=== PATIENT | female | born 1945 | race Caucasian/White ===

== ENCOUNTER 2017-04-12 00:57 | Inpatient (IN) ==
[2017-04-12] MEDS ORDERED: NITROGLYCERIN 2% OINT 1 INCH/GM PACK TOP STA (01:27)
[2017-04-12] MEDS ORDERED: ENOXAPARIN 100 MG/ML SYRINGE SUBCUT STA (01:27)
[2017-04-12] MEDS ORDERED: ALUM/MAG/SIMETH/LIDO VISC 1:1 30 ML BOTTLE PO STA (01:27)
[2017-04-12] MEDS ORDERED: ONDANSETRON 4 MG/2 ML VIAL IV STA (01:27)
[2017-04-12] MEDS ORDERED: ASPIRIN 325 MG TABLET PO STA (01:27)
[2017-04-12] MEDS ORDERED: MORPHINE 2 MG/1 ML SYRINGE IV STA (01:27)
[2017-04-12] MEDS ORDERED: ONDANSETRON 4 MG/2 ML VIAL ONE (01:51)
[2017-04-12] MEDS ORDERED: MORPHINE 2 MG/1 ML SYRINGE ONE (01:51)
[2017-04-12] MEDS ORDERED: ALUM/MAG/SIMETH/LIDO VISC 1:1 30 ML BOTTLE PO ONE (01:51)
[2017-04-12] MEDS ORDERED: NITROGLYCERIN 2% OINT 1 INCH/GM PACK TOP ONE ×2 (01:51→07:48)
[2017-04-12] MEDS ORDERED: ENOXAPARIN 80 MG/0.8 ML SYRINGE SUBCUT ONE (01:51)
--- NOTE | 2017-04-12 01:51 | Emergency Department Note ---
ITang Emily, am scribing for, and in the presence of, Tonny Higuera MD 01: 49. Kalen Luna Charles R, MD, personally performed the services described in this documentation, ascribed by Nancie Beckwith in my presence, and it is both accurate and complete . 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 pt has hx stents x 2, dm, htn. 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 Pt notes pain in now radiated to her upper left side of back, and feels similar to heart attack in past. Pt reports having stents placed in which last one was in [address] Worrell. Pt denies nausea, SOB, arm or neck pain. She was seen earlier today for cough and congestion with Cally Ricardo, nurse practitioner, and given two steroid/abx shot in buttocks. Pt notes getting weaker with exertion but denies MALLOY. PMHx of NIDDM, HTN. Onset (ago): hour(s) Consistency: constant Severity: moderate Severity scale (1-10): 7 Quality: aching Date of Last Menstrual Period: hysterectomy Allergies/Adverse Reactions: Allergies Allergy/AdvReac Type Severity Reaction Status Date / Time levofloxacin [From Levaquin] Allergy Unknown Verified 02/09/17 17:13 methylprednisolone Allergy Unknown Verified 02/09/17 17:14 [From Depo-Medrol] Penicillins Allergy Unknown Verified 02/09/17 17:13 Review of System - Review of System 12 point system: reviewed and no additional remarkable complaints except as stated - Review of System Constitutional: Absent: chills, diaphoresis, fever Respiratory: Absent: respiratory distress Cardiovascular: Present: chest pain (radiating to upper left back). Absent: dyspnea on exertion, edema, syncope Gastrointestinal: Absent: abdominal pain, nausea, vomiting Musculoskeletal: Present: upper back pain (left side). Absent: arm pain, neck pain Skin: Absent: rash Neurological: Absent: headache, confusion Medical,Surgical,& Family Hx - Medical History Cardio: History of: Hypertension, [place] (stents x 2) Endocrine: History of: Diabetes Mellitus (NIDDM) - Social History Smoking Status: Never smoker Frequency of Alcohol Use: None Type of Drug Use: None Marital Status: Lives With:: Spouse Functional capacity: independent ambulation Exam Vital Signs: Vital Signs Temperature 96.9 F L 04/12/17 00:57 Pulse Rate 105 H 04/12/17 00:57 Respiratory Rate 25 H 04/12/17 00:57 Blood Pressure 149/73 04/12/17 00:57 O2 Sat by Pulse Oximetry 98 04/12/17 00:57 - General General appearance: alert, in no apparent distress - Head Head exam: Present: atraumatic, normocephalic - Eye Eye exam: Present: PERRL, EOMI - ENT ENT exam: Present: mucous membranes moist. Absent: mucous membranes dry - Neck Neck exam: Present: full ROM - Chest Chest inspection: Present: symmetric chest wall rise, tenderness (left sided chest pain at mid sternum) - Respiratory Respiratory exam: Present: normal lung sounds bilaterally. Absent: respiratory distress - Cardiovascular Cardiovascular exam: Present: regular rate, normal rhythm, normal heart sounds - Extremities Exam Extremities exam: Present: full ROM. Absent: tenderness, pedal edema - Back Exam Back exam: Present: full ROM, tenderness (reproducible, left sided upper back tenderness) - Neurological Exam Neurological exam: Present: alert, oriented X3, CN II-XII intact. Absent: motor sensory deficit - Psychiatric Psychiatric exam: Present: normal affect, normal mood - Skin Skin exam: Present: warm, dry Course - Reevaluation(s) Reevaluation #1: Patient's chest pain is better still has pain though. Looking at EKG #1 done on arrival she has subtle changes some ST elevation less than 1 mm. EKG #2 there is only one lead that has very slight elevation in lead III. After talking to Dr. 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 Patient does have a borderline elevated troponin 0.221. My opinion patient is may be having acute coronary event that most likely result in a catheterization in the morning patient be placed in the CCU Time: 02:37 - Consultations Consultation #1: Dr. Gooden will admit patient. Time: 02:36 Results - Labs CBC & BMP: 04/12/17 01:10 04/12/17 01:10 Lab Results: I have reviewed the patients labs Labs: Laboratory Tests 04/12/17 04/12/17 04/12/17 01:10 01:10 01:10 WBC 6.8 RBC 4.05 Hgb 10.6 L Hct 32.5 L MCV 80.2 L MCH 26 L Plt Count 258 Neut % (Auto) 78.2 H Lymph % (Auto) 13.9 L Lymph # (Auto) 0.9 L Sodium 137 Potassium 4.3 Chloride 104 Carbon Dioxide 25 BUN 26 H Creatinine 1.90 H Glucose 278 H Magnesium 1.4 L AST 24 ALT 34 Troponin I 0.221 H Albumin/Globulin Ratio 1.0 L Lipase 155.0 Critical Care Time Critical Care Time: Yes Total Critical Care Time: 60 Disposition Clinical Impression: Chest pain, Unstable angina pectoris Case discussed with: patient, patient's family Disposition: Still a Patient Condition: Guarded Time of Disposition: 02:38
[2017-04-12 02:00] LABS: Basophils % 0.3 % (0.0-0.8); Hematocrit 32.5 VOL% (35.7-47.0); Hemoglobin 10.6 GM/DL (12.0-16.0); Immature Granulocytes % 1.2 %; Immature Granulocytes Absolute 0.08 #; Lymphocytes # 0.9 10*3/uL (1.4-4.0); Lymphocytes % 13.9 % (21.3-54.2); Mean Corpuscular HGB Conc 32.6 GM/DL (32-36); Mean Corpuscular Hemoglobin 26 PG (27-34); Mean Corpuscular Volume 80.2 FL (87-102); Mean Platelet Volume 10.4 FL (9.6-12.0); Monocytes # 0.4 10*3/uL (0.11-0.8); Monocytes % 6.4 % (1.7-12.7); Neutrophils # 5.3 10*3/uL (1.4-7.4); Neutrophils % 78.2 % (38.7-73.9); Platelet Count 258 T/CUMM (130-400); Red Blood Count 4.05 MC/CUMM (3.8-5.5); Red Cell Distribution Width 15.1 % (9.3-17.3); White Blood Count 6.8 T/CUMM (4-12)
[2017-04-12 02:04] LABS: Alanine Aminotransferase 34 U/L (13-56); Albumin 3.7 G/DL (3.4-5.0); Alkaline Phosphatase 46 U/L (45-117); Aspartate Amino Transferase 24 U/L (0-37); Bilirubin,Total < 0.39 MG/DL (0.2-1.0); Blood Urea Nitrogen 26 MG/DL (7-18); Calcium 8.9 MG/DL (8.5-10.1); Glucose 278 MG/DL (74-106); Magnesium 1.4 MG/DL (1.8-2.4); Osmolality,Calculated 287.8 MOS/KG (273-304); Potassium 4.3 MMOL/L (3.5-5.1); Sodium 137 MMOL/L (136-145); Total Protein 7.2 G/DL (6.4-8.3)
[2017-04-12 02:05] LABS: PT Patient Result 10.8 SECS
[2017-04-12] MEDS ORDERED: MAGNESIUM SULF RIDER 2 GM in PREMIX 1 EACH IV STA (02:19)
[2017-04-12] MEDS ORDERED: MAGNESIUM SULF RIDER 50 ML IV ONE (03:09)
[2017-04-12] MEDS ORDERED: POTASSIUM CHLORIDE 20 MEQ TABLET PO PRN ×2 (05:11→08:16)
[2017-04-12] MEDS ORDERED: ONDANSETRON 4 MG/2 ML VIAL IV PRN (05:11)
[2017-04-12] MEDS ORDERED: GLUCAGON 1 MG VIAL IM PRN (05:11)
[2017-04-12] MEDS ORDERED: MORPHINE 2 MG/1 ML SYRINGE IV PRN (05:11)
[2017-04-12] MEDS ORDERED: MAGNESIUM SULF RIDER 4 GM in PREMIX 1 EACH IV PRN (05:11)
[2017-04-12] MEDS ORDERED: DEXTROSE 50% 25 GM/50 ML SYRINGE IV PRN (05:11)
[2017-04-12] MEDS ORDERED: MAGNESIUM SULF RIDER 2 GM in PREMIX 1 EACH IV PRN ×2 (05:11→08:16)
--- NOTE | 2017-04-12 05:20 | EKG Report ---
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
[2017-04-12 05:54] LABS: Apearance,Urine Slightly Hazy (Clear); Bacteria,Urine Occasional /HPF (Few); Bilirubin,Urine Negative (Negative); Blood, Urine Negative (Negative); Glucose,Urine (UA) 150 mg/dL (Negative); Hyaline Casts,Urine 28 /LPF (0-3); Ketones,Urine 5 mg/dL (Negative); Mucus,Urine Occasional /LPF (Occasional); Nitrite,Urine Negative (Negative); Protein,Urine Negative; RBC,Urine 1 /HPF (0-4); Renal Epithelial Cells,Urine Occasional /HPF (<1); Squamous Epithelial Cell,Urine Occasional /HPF (0-10); Urine Color Yellow (Yellow); Urine Urobilinogen < 2.0 EU/DL (0.2-1.0); WBC,Urine 1 /HPF (0-6)
[2017-04-12] MEDS ORDERED: NITROGLYCERIN 2% OINT 1 INCH/GM PACK TOP SCH (06:00)
[2017-04-12] MEDS: SODIUM CHLORIDE 0.9% 1,000 ML IV SCH ×2 (06:10→21:40)
--- NOTE | 2017-04-12 07:20 | XRay Report ---
Portable chest Exam date: 04/12/2017 1:28 AM Indication: Shortness of breath, cough chest pain Comparison: September 16, 2012 Findings: Cardiomediastinal contours are stable with again cardiomegaly and plaquing along the arch. Chronic interstitial coarsening. No superimposed consolidative congestive process. No acute osseous abnormalities. Visualized upper abdomen demonstrates no acute pathology. Impression: No acute cardiopulmonary findings PROCEDURE INTERPRETED AT [facility] DEPARTMENT OF RADIOLOGY Final Report Signed by: Demetri Molina
--- NOTE | 2017-04-12 07:53 | EKG Report ---
Stationary ECG Study [facility] ER Test Date: 04/12/2017 7:52:39 AM Pat Name: LAURA MITCHELL Department: Room: Gender: F Inspector Watch Train: : 1945 Requested by: Tonny Taylor Order Number: [id number] Reading MD: HIRO KING Intervals [place] Rate: 92 P: 22 [place]: 184 QRS: 116 QRSD: 89 T: 94 QT: 326 QTc: 376 Interpretive Statements SINUS RHYTHM POSSIBLE RIGHT VENTRICULAR HYPERTROPHY POSSIBLE LATERAL MYOCARDIAL INFARCTION, OF INDETERMINATE AGE PROBABLE INFERIOR MYOCARDIAL INFARCTION, OF INDETERMINATE AGE ST DEPRESSION, CONSIDER SUBENDOCARDIAL INJURY Electronically Signed On 04-12-17 21:13:26 CDT by HIRO KING [id number]
[2017-04-12] MEDS ORDERED: MIDAZOLAM 2 MG/2 ML VIAL ONE (07:59)
[2017-04-12] MEDS ORDERED: HEPARIN/NACL 0.9% 2 UNITS/ML 1,000 ML IV ONE (07:59)
[2017-04-12] MEDS ORDERED: LIDOCAINE 1%/EPI INJ 20 ML VIAL ONE (07:59)
[2017-04-12] MEDS ORDERED: fentaNYL 100 MCG/2 ML VIAL ONE (07:59)
[2017-04-12] MEDS ORDERED: HEPARIN/NACL 0.9% 2 UNITS/ML 500 ML IV ONE (08:01)
[2017-04-12] MEDS ORDERED: METOPROLOL TARTRATE 5 MG/5 ML VIAL IV ONE (08:03)
[2017-04-12] MEDS ORDERED: METOPROLOL TARTRATE 5 MG/5 ML VIAL IV STA (08:14)
--- NOTE | 2017-04-12 08:20 | EKG Report ---
Stationary ECG Study [facility] ER Test Date: 04/12/2017 1:02:16 AM Pat Name: LAURA MITCHELL Department: Room: Gender: F Bilingual Customer Service: : 1945 Requested by: Tonny Taylor Order Number: [id number] Jair MD: SOURAV WHYTE Intervals [place] Rate: 91 P: 51 [place]: 186 QRS: 39 QRSD: 88 T: 73 QT: 344 QTc: 393 Interpretive Statements SINUS RHYTHM NONSPECIFIC ST-T CHANGES Electronically Signed On 04-12-17 20:59:33 CDT by SOURAV WHYTE [id number]
--- NOTE | 2017-04-12 08:21 | Cardiology History & Physical ---
Assessment and Plan - Time spent with patient Time spent with patient: Greater than 30 minutes (1) ST elevation (STEMI) myocardial infarction Status: Acute Assessment and plan: SEE PLAN OF CARE LISTED BELOW Current Visit: Yes (2) Hypertension Status: Chronic Assessment and plan: SEE PLAN OF CARE LISTED BELOW Current Visit: Yes (3) Dyslipidemia Status: Chronic Assessment and plan: SEE PLAN OF CARE LISTED BELOW Current Visit: Yes (4) Diabetes Status: Chronic Assessment and plan: SEE PLAN OF CARE LISTED BELOW Current Visit: Yes (5) Obesity (BMI 30.0-34.9) Status: Chronic Assessment and plan: SEE PLAN OF CARE LISTED BELOW Current Visit: Yes (6) Renal insufficiency Status: Acute Assessment and plan: SEE PLAN OF CARE LISTED BELOW Current Visit: Yes (7) Anemia Status: Chronic Assessment and plan: SEE PLAN OF CARE LISTED BELOW Current Visit: Yes (8) Chest pain Status: Acute Assessment and plan: SEE PLAN OF CARE LISTED BELOW Current Visit: Yes History of Present Illness Chief complaint: Chest pain, back pain History of present illness: 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 GONZALEZ Patient is being seen in the emergency department Ms. Salguero, 71WF, with risk factors significant for: Known CAD (S/P PCI-RCA, PCI -ostial/proximal LAD September 20, 2012), hypertension, dyslipidemia, diabetes, obesity and sedentary lifestyle. 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 Initially, began in the left chest then radiated to the back, described as sharp and grabbing. Associated with shortness of breath and diaphoresis. Can identify no aggravating nor any alleviating factors. Rates the discomfort as a 7 on a scale of 1-10. Initially, upon arrival, patient's chest pain subsided after being given nitroglycerin paste. EKG revealed ST depression and troponin only mildly elevated at 0.2. Around 0730, patient began to complain of worsening chest pain radiating to her back. EKG was obtained at [address] elevation. Rated her discomfort as a 7 on a scale of 1-10. Described the discomfort as the same type of discomfort she experienced prior to requiring stents in 2012. Dr. Gooden was notified, came immediately. Patient has received Aspirin, therapeutic dose of Lovenox, Lopressor IV, nitroglycerin paste. Patient took Plavix and Crestor last evening around 9 PM. Patient is being prepped for emergent cardiac catheterization. ASSESSMENT/PLAN: 1. STEMI - initially, patient was diagnosed with NSTEMI. However, at 0730 evolved into STEMI. She has been treating according ACS protocol and taken emergently to cardiac catheterization lab 2. KNOWN CAD - prior PCI RCA, LAD with [place]. Will adjust medications accordingly during this hospital stay 3. HYPERTENSION - per report usually well controlled. Will verify she is receiving beta-blockade and NA inhibitor as able. 4. DYSLIPIDEMIA - fasting lipid profile. Continue lipid-lowering agent, high dose. 5. DIABETES - holding Metformin. Sliding scale insulin during hospital stay. 6. OBESITY - dietary counseling prior to discharge 7. ANEMIA - patient reports she has no GI bleeding, vomiting of blood or passing blood in her stool and has a long-standing history of mild anemia. Will check stool for occult blood during hospital stay. 8. 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 We will follow her creatinine closely. We will hold NA inhibitor at this point if possible in order to avoid worsening her renal insufficiency. Home Medications Medication Instructions Recorded Confirmed Type Cetirizine HCl [Cetirizine Tab] 10 mg PO DAILY 04/12/17 04/12/17 History Clopidogrel Bisulfate [Clopidogrel] 75 mg PO DAILY 04/12/17 04/12/17 History Doxazosin [Cardura] 1 mg PO DAILY 04/12/17 04/12/17 History Losartan Potassium 100 mg PO DAILY 04/12/17 04/12/17 History Metformin HCl 500 mg PO BID W/MEALS 04/12/17 04/12/17 History Nebivolol HCl [Bystolic] 20 mg PO DAILY 04/12/17 04/12/17 History Rosuvastatin Calcium 5 mg PO DAILY 04/12/17 04/12/17 History amLODIPine [Norvasc] 5 mg PO DAILY 04/12/17 04/12/17 History hydroCHLOROthiazide 25 mg PO DAILY 04/12/17 04/12/17 History [Hydrochlorothiazide] Allergies Allergy/AdvReac Type Severity Reaction Status Date / Time levofloxacin [From Levaquin] Allergy Unknown Verified 02/09/17 17:13 methylprednisolone Allergy Unknown Verified 02/09/17 17:14 [From Depo-Medrol] Penicillins Allergy Unknown Verified 02/09/17 17:13 Review of systems: REVIEW OF SYSTEMS: - Constitutional Constitutional: Present: Fatigue. Absent: syncope, anorexia, night sweats - EENT Eyes: Absent: blurry vision, loss of vision, diplopia Ears: Absent: decreased hearing, ear pain, ear discharge - Cardiovascular Cardiovascular: Present: chest pain with exertion and at rest. Acknowledges dyspnea on exertion. Denies edema, palpitations. Absent: chest pain with deep breath, claudication - Respiratory Respiratory: Present: MALLOY, denies cough. Absent: wheezing, hemoptysis, change in phlegm color - Gastrointestinal Gastrointestinal: Denies: constipation. Absent: abdominal pain, hematemesis, hematochezia, melena, change in bowel habits, nausea - Genitourinary Genitourinary: Absent: difficulty urinating, dysuria, urinary hesitancy, flank pain - Musculoskeletal Musculoskeletal: Present: Left upper back pain. Absent: joint swelling, muscle cramps, muscle weakness - Neurological Neurological: Present: normal gait without frequent falls. Absent: dizziness, hemiparesis - Psychiatric Psychiatric: Absent: anxiety, depression, difficulty concentrating - Endocrine Endocrine: Present: fatigue. Absent: cold intolerance, heat intolerance, polyuria, polyphagia, polydipsia - Hematologic/Lymphatic Hematologic/Lymphatic: Present: easy bruising. Absent: easy bleeding -Integumentary Integumentary: Absent: lesions, rashes, skin breakdown Medical,Surgical,& Family Hx - Medical History Cardio: History of: CAD, Hypertension, [place] (stents x 2) No history of: Cardiac Dysrhythmia Endocrine: History of: Diabetes Mellitus (NIDDM) - Social History Smoking Status: Never smoker Have you smoked in the last 12 months: No Frequency of Alcohol Use: None Type of Drug Use: None Marital Status: Lives With:: Spouse Functional capacity: independent ambulation Cardiology Physical Exam - Constitutional Vitals: Vital Signs Temp Pulse Resp BP Pulse Ox 96.9 F L 105 H 25 H 149/73 98 04/12/17 00:57 04/12/17 00:57 04/12/17 00:57 04/12/17 00:57 04/12/17 00:57 Intake and Output 04/11/17 04/12/17 04/12/17 23:59 07:59 15:59 Intake Total 50 / 50 Balance 50 / 50 Intake: IV 50 / 50 Magnesium Sulf Noah 2 gm 50 / 50 /50 ml In Premix 1 Each @ 25 mls/hr IV 1X ED STA Rx#:[id number] Other: Weight 81.647 kg Patient Weight 04/12/17 23:59 Weight 81.647 kg Exam: General: [Appears well with no apparent distress.] [Pleasant and cooperative. ] [Appears comfortable.] HEENT: [PERRL, normocephalic, atraumatic. Mucous membranes moist. No jaundice noted. Conjunctiva moist and clear, sclerae anicteric] Neck: No JVD/HJR, no thyromegaly or lymphadenopathy noted. No carotid bruit appreciated Cardiac: [Regular rate and rhythm.] [No murmur rub or gallop.] Lungs: [Clear to auscultation without accessory muscle use to assist the respiratory pattern.] Oxygen in use via nasal cannula Abdomen: Soft, bowel sounds normoactive. Nontender and nondistended. No abdominal bruit or thrill noted. No masses noted. Musculoskeletal: No fluid collection. Decreased range of motion is noted. Extremities: No clubbing, cyanosis noted. [ No edema noted.] Upper extremity pulses 2+. Lower extremity pulses 2+. Capillary refill less than 3 seconds. Skin: No unusual lesions or rashes. No skin breakdown appreciated. Neuro: Awake, alert and oriented 3. Moves all extremities well without hemiparesis or paralysis. No essential tremor is appreciated. Result/EKG - Labs CBC & BMP: 04/12/17 01:10 04/12/17 01:10 Lab Results: I have reviewed the past 24 hour labs Labs: Laboratory Results - last 24 hr 04/12/17 04/12/17 04/12/17 01:10 01:10 01:10 WBC RBC Hgb Hct MCV MCH MCHC RDW Plt Count MPV Neut % (Auto) Lymph % (Auto) [place] % (Auto) Eos % (Auto) Baso % (Auto) Neut # (Auto) Lymph # (Auto) [place] # (Auto) Eos # (Auto) Baso # (Auto) Immature Gran % Nucleated RBC % Immature Gran # Nucleated RBCs # Immature Plt Fraction INR 1.0 PT Patient/Control Mix 10.8 Sodium 137 Potassium 4.3 Chloride 104 Carbon Dioxide 25 Anion Gap 12.3 BUN 26 H Creatinine 1.90 H GFR Calculation 28 BUN/Creatinine Ratio 13.00 Glucose 278 H Calculated Osmolality 287.8 Calcium 8.9 Magnesium 1.4 L Total Bilirubin < 0.39 AST 24 ALT 34 Alkaline Phosphatase 46 Troponin I 0.221 H B-Natriuretic Peptide Total Protein 7.2 Albumin 3.7 Globulin 3.5 Albumin/Globulin Ratio 1.0 L Lipase 155.0 Urine Color Urine Appearance Urine pH Ur Specific [place] Urine Protein Urine Glucose (UA) Urine Ketones Urine Blood Urine Nitrate Urine Bilirubin Urine Urobilinogen Urine Leukocytes Urine RBC Urine WBC Ur Squamous Epith Cells Ur Renal Epithelial Cell Urine Bacteria Hyaline Casts Urine Mucus Ur Culture Indicated? 04/12/17 04/12/17 04/12/17 01:10 01:10 01:28 WBC 6.8 RBC 4.05 Hgb 10.6 L Hct 32.5 L MCV 80.2 L MCH 26 L MCHC 32.6 RDW 15.1 Plt Count 258 MPV 10.4 Neut % (Auto) 78.2 H Lymph % (Auto) 13.9 L [place] % (Auto) 6.4 Eos % (Auto) 0.0 Baso % (Auto) 0.3 Neut # (Auto) 5.3 Lymph # (Auto) 0.9 L [place] # (Auto) 0.4 Eos # (Auto) 0.0 Baso # (Auto) 0.0 Immature Gran % 1.2 Nucleated RBC % 0.0 Immature Gran # 0.08 Nucleated RBCs # 0.00 Immature Plt Fraction 0.0 INR PT Patient/Control Mix Sodium Potassium Chloride Carbon Dioxide Anion Gap BUN Creatinine GFR Calculation BUN/Creatinine Ratio Glucose Calculated Osmolality Calcium Magnesium Total Bilirubin AST ALT Alkaline Phosphatase Troponin I B-Natriuretic Peptide 150 H Total Protein Albumin Globulin Albumin/Globulin Ratio Lipase Urine Color Yellow Urine Appearance Slightly hazy Urine pH 5.0 Ur Specific [place] 1.020 Urine Protein Negative Urine Glucose (UA) 150 Urine Ketones 5 Urine Blood Negative Urine Nitrate Negative Urine Bilirubin Negative Urine Urobilinogen < 2.0 H Urine Leukocytes Small H Urine RBC 1 Urine WBC 1 Ur Squamous Epith Cells Occasional Ur Renal Epithelial Cell Occasional Urine Bacteria Occasional Hyaline Casts 28 Urine Mucus Occasional Ur Culture Indicated? Results to follow 04/12/17 05:16 WBC RBC Hgb Hct MCV MCH MCHC RDW Plt Count MPV Neut % (Auto) Lymph % (Auto) [place] % (Auto) Eos % (Auto) Baso % (Auto) Neut # (Auto) Lymph # (Auto) [place] # (Auto) Eos # (Auto) Baso # (Auto) Immature Gran % Nucleated RBC % Immature Gran # Nucleated RBCs # Immature Plt Fraction INR PT Patient/Control Mix Sodium Potassium Chloride Carbon Dioxide Anion Gap BUN Creatinine GFR Calculation BUN/Creatinine Ratio Glucose Calculated Osmolality Calcium Magnesium Total Bilirubin AST ALT Alkaline Phosphatase Troponin I 3.290 H D B-Natriuretic Peptide Total Protein Albumin Globulin Albumin/Globulin Ratio Lipase Urine Color Urine Appearance Urine pH Ur Specific [place] Urine Protein Urine Glucose (UA) Urine Ketones Urine Blood Urine Nitrate Urine Bilirubin Urine Urobilinogen Urine Leukocytes Urine RBC Urine WBC Ur Squamous Epith Cells Ur Renal Epithelial Cell Urine Bacteria Hyaline Casts Urine Mucus Ur Culture Indicated? - Diagnostic Findings Procedure: Chest x-ray: report reviewed by me - EKG EKG results: interpreted by me EKG shows: sinus rhythm
--- NOTE | 2017-04-12 08:22 | EKG Report ---
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
--- NOTE | 2017-04-12 08:25 | History and Physical Update ---
Sedation H&P Update - History and Physical H&P was reviewed, the patient examined and there: are no changes in the patients condition since last H&P was completed. - Sedation Plan for Sedation: moderate Patient Consent: Procedure disscussed with patient and patinet has consented., Risks and benefits were discussed with patient,including infection,, bleeding, injury to surrounding structures, seizure, temporary nerve, Patient understands and accepts potential risks/benefits and agrees to, proceed. ASA Class: III Airway Assessment: Class III: Soft palate, base of uvula visible
[2017-04-12] MEDS ORDERED: ENOXAPARIN 60 MG/0.6 ML SYRINGE ONE (08:31)
[2017-04-12] MEDS ORDERED: TIROFIBAN 5,000 MCG/100 ML PREMIX IV ONE (08:35)
[2017-04-12] MEDS ORDERED: TIROFIBAN 5,000 MCG/100 ML PREMIX IV SCH (08:39)
[2017-04-12] MEDS ORDERED: TICAGRELOR 90 MG TABLET ONE (08:41)
[2017-04-12] MEDS ORDERED: ASPIRIN EC 325 MG TABLET PO SCH (09:00)
[2017-04-12] MEDS ORDERED: ENOXAPARIN 80 MG/0.8 ML SYRINGE SUBCUT SCH (09:00)
--- NOTE | 2017-04-12 09:42 | Cardiac Catheterization ---
Date of Procedure:: 04/12/17 Pre-op Diagnosis: Patient with an inferior ST elevation myocardial infarction Post-op diagnosis: same Procedure: Procedures performed: #1 left heart catheterization #2 coronary angiography #3 percutaneous intervention to the mid first marginal branch of the circumflex for in-stent restenosis treated with a 2.5 x 12 mm noncompliant balloon with a good angiographic result #4 Unsuccessful stenting related to angulation proximally. #4 left ventriculography #5 right femoral sheath angiography #6 Angio-Seal closure right femoral arteriotomy site After obtaining informed consent the patient brought to the [facility] where the right groin was prepped and draped in the usual sterile manner. After local anesthesia and intravenous sedation a needle stick was made to the right femoral artery and a 6 Bangladeshi sheath was positioned without difficulty. A Dmitry left catheter was advanced over a guidewire under fluoroscopic control to the ascending aorta where angiography of left coronary artery was undertaken in multiple views. After adequate angiograms of the left coronary were obtained this catheter was withdrawn and an AMRM right coronary catheter was advanced over a guidewire under fluoroscopic control to the ascending aorta where angiography of the right coronary artery was undertaken in multiple views. After adequate angiograms of the right coronary were obtained this catheter was withdrawn and a pigtail ventriculographic catheter was advanced over a guidewire under fluoroscopic control to the ascending aorta where it was passed across the aortic valve and intraventricular hemodynamics were measured. Patient underwent left ventriculography injecting 35 mL of contrast at 12 mL/ s. This was performed from the right anterior oblique projection. After ventriculography this catheter was pulled back from the ventricle to the aorta under hemodynamic monitoring and removed. We elected to proceed with percutaneous intervention of the circumflex marginal coronary artery. A Dmitry left guide was advanced over guidewire under fluoroscopic control and the left main was engaged. An 014 BMW wire was advanced to the distal marginal branch and a 2.0 x 12 mm balloon was used inflated to 12 flor of the stenotic segment with good resolution of the stenosis. This balloon was then withdrawn. We attempted on several occasions to pass a stent to this area without success. We attempted with an EBU guide as well as an AL-1 guide. The AL-1 guide provided support for additional balloon angioplasty as described below. This was related angulation and prior stent placement of the left main coronary artery. A 2.5 x 12 mm balloon was advanced to the area stenosis and inflated to 15 flor. There was good resolution of the stenosis with a "stent like" result. Residual stenosis was in the 10% range with the MAURICE grade III flow. After repeat balloon inflation we were still unable to pass the stent for the reasons described above. We elected at this point to stop the procedure. The wires and balloons were pulled back into the guide repeat angiography confirmed good result angiographically. The patient underwent right femoral sheath angiography which demonstrated anatomy appropriate for Angio-Seal closure. This was performed without difficulty and good hemostasis was obtained. Hemodynamics: Please see the accompanying data sheet Coronary angiography: Left coronary artery: The left main coronary artery is well-developed and free of significant obstructing lesions. There is an intracoronary stent in the proximal LAD which extends back into the left main coronary artery. There is a 40-50% area stenosis at the origin of the circumflex coronary artery. There is an intracoronary stent in the proximal circumflex extending with more stent placed to the first marginal branch. In this marginal branch is an area of discrete 99 % stenosis. The remainder of the marginal is free of significant lesions. The distal circumflex is free of significant lesions. The circumflex coronary artery is a moderate-sized nondominant vessel that possesses no significant lesions to its course. The branches of the circumflex likewise are free of significant obstructing lesions. The left anterior descending coronary artery is occluded beyond the takeoff of the first septal tile layer drainage. The distal vessel is extremely small and fills very faintly via collaterals. The proximal diagonals appear to be free of significant obstructing lesions. Right coronary artery: The right coronary artery is a small severely diffusely diseased vessel which looks no different now than it did when Dr. Batista soon attempted PCI on it for years ago. She has an ostial 90% stenosis and the distal vessel is very small. Left ventriculography: After injection contrast left ventricle is known to be of normal size with inferobasal hypokinesis as well as apical and lateral hypokinesis. Overall ejection fraction measures in the 50% range. Mitral and aortic structures appear normal by ventriculogram. Percutaneous intervention: The above described procedure the lesion went from 99% stenotic to roughly 10 % stenotic post PCI. No evidence of dissection or compromised flow can be identified. There was MAURICE grade 3 flow down the vessel. Right femoral sheath angiography: After injection of contrast in the right femoral arterial sheath it appears to enter the common femoral above the bifurcation. No evidence of significant disease of the distal iliac, common femoral or bifurcation be noted based on this limited angiographic study. Conclusions: 1: Successful percutaneous intervention of the mid OM1 for in-stent restenosis treated with PTCA with a 2.5 x 12 mm noncompliant balloon with a residual stenosis in the 10% range. 2: Severe diffuse disease of a very small right coronary artery 3: Total occlusion of the LAD beyond the first septal tile layer drainage with a very small distal LAD not amenable to PCI or bypass surgery 3: Anteroapical as well as inferobasal hypokinesis ejection fraction in the 50% range. 4: Angio-Seal closure right from arteriotomy site Discussion and recommendations: Patient presents with a stuttering inferior myocardial infarction. She has diffuse severe disease of a very small right coronary and a fairly large marginal branch which was very tightly stenosed. She has undergone percutaneous intervention of the marginal with a good angiographic result. She is pain-free currently and ECG changes are resolved and our plan is going to continue medical therapy. She has a very small distal LAD which is not amenable to PCI or surgery with total occlusion of the LAD beyond the first septal. Results at PCI in 2013 was good with vessel was very small and is not surprising that is currently closed. I think this was a subclinical event. Our plans can be to continue aggressive risk factor modification and antiplatelet therapy. It is disappointing that we were unable to stent this but given the amount of left main stent it is not surprising we were unable to pass a stent into the marginal. Surgeon / Physician: Adrian Gooden Estimated blood loss: minimal Specimens: none sent Condition: stable - Discharge Disposition: Still a Patient - Medications / Follow-up
[2017-04-12] MEDS ORDERED: ACETAMINOPHEN 325 MG TABLET ONE (09:51)
[2017-04-12] MEDS ORDERED: ACETAMINOPHEN 325 MG TABLET PO ONE (10:12)
[2017-04-12] MEDS ORDERED: ALPRAZolam 0.25 MG TABLET PO PRN (11:36)
--- NOTE | 2017-04-12 11:44 | EKG Report ---
Stationary ECG Study [facility] Test Date: 04/12/2017 11:46:59 AM Pat Name: LAURA MITCHELL Department: Room: Gender: F [employer]: : 1945 Requested by: Echo Vieira Order Number: [id number] Reading MD: HIRO KING Intervals [place] Rate: 82 P: 67 MA: 212 QRS: 7 QRSD: 83 T: 89 QT: 330 QTc: 369 Interpretive Statements SINUS RHYTHM WITH FIRST DEGREE AV BLOCK Electronically Signed On 04-12-17 21:18:06 CDT by HIRO KING [email or web address]
[2017-04-12] MEDS: INSULIN REGULAR 100 UNIT/ML SUBCUT SCH ×4 (12:41→20:54)
[2017-04-12] MEDS: DOXAZOSIN 1 MG TABLET PO SCH (13:00)
[2017-04-12] MEDS: LOSARTAN 50 MG TABLET PO SCH (13:00)
[2017-04-12] MEDS: ASPIRIN EC 325 MG TABLET PO SCH (13:19)
[2017-04-12] MEDS: PANTOPRAZOLE 40 MG TABLET PO SCH (13:39)
[2017-04-12] MEDS: amLODIPine 5 MG TABLET PO SCH (13:39)
--- NOTE | 2017-04-12 14:34 | EKG Report ---
Stationary ECG Study [facility] Test Date: 04/12/2017 2:33:48 PM Pat Name: LAURA MITCHELL Department: Room: 111 Gender: F Patient Access Specialist: : [id number] Requested by: Echo Vieira Order Number: [id number] Reading MD: HIRO KING Intervals [place] Rate: 78 P: 58 HI: 142 QRS: 88 QRSD: 90 T: -8 QT: 398 QTc: 432 Interpretive Statements SINUS RHYTHM INDETERMINATE AXIS LOW QRS VOLTAGE IN PRECORDIAL LEADS INFERIOR MYOCARDIAL INFARCTION, OF INDETERMINATE AGE Electronically Signed On 04-12-17 21:19:44 CDT by HIRO KING [email or web address]
[2017-04-12] MEDS: METOPROLOL TARTRATE 50 MG TABLET PO SCH (21:40)
[2017-04-12] MEDS: TICAGRELOR 90 MG TABLET PO SCH (21:40)
[2017-04-13 05:34] LABS: Basophils # 0.1 10*3/uL (0.0-0.2); Basophils % 0.5 % (0.0-0.8); Eosinophils # 0.1 10*3/uL (0.0-0.87); Eosinophils % 0.5 % (0.00-10.9); Immature Granulocytes % 0.7 %; Immature Granulocytes Absolute 0.08 #; Lymphocytes # 1.7 10*3/uL (1.4-4.0); Lymphocytes % 13.9 % (21.3-54.2); Mean Corpuscular HGB Conc 32.3 GM/DL (32-36); Mean Corpuscular Hemoglobin 26 PG (27-34); Mean Corpuscular Volume 79.7 FL (87-102); Mean Platelet Volume 10.1 FL (9.6-12.0); Monocytes # 1.1 10*3/uL (0.11-0.8); Monocytes % 8.7 % (1.7-12.7); Neutrophils # 9.3 10*3/uL (1.4-7.4); Neutrophils % 75.7 % (38.7-73.9); Platelet Count 260 T/CUMM (130-400); Red Blood Count 3.89 MC/CUMM (3.8-5.5); Red Cell Distribution Width 15.3 % (9.3-17.3); White Blood Count 12.2 T/CUMM (4-12)
[2017-04-13 06:12] LABS: Calcium 8.5 MG/DL (8.5-10.1); Magnesium 2.2 MG/DL (1.8-2.4); Osmolality,Calculated 285.4 MOS/KG (273-304); Potassium 4.4 MMOL/L (3.5-5.1)
[2017-04-13 06:14] LABS: Albumin 3.3 G/DL (3.4-5.0); Bilirubin,Total 1.1 MG/DL (0.2-1.0); Calcium 8.5 MG/DL (8.5-10.1); Magnesium 2.2 MG/DL (1.8-2.4); Osmolality,Calculated 284.4 MOS/KG (273-304); Potassium 4.4 MMOL/L (3.5-5.1); Risk Ratio 2.71; Total Protein 6.4 G/DL (6.4-8.3); VLDL CHOLESTEROL 31.6 MG/DL
[2017-04-13] MEDS: INSULIN REGULAR 100 UNIT/ML SUBCUT SCH ×4 (07:50→21:21)
--- NOTE | 2017-04-13 08:08 | XRay Report ---
XR chest 1V portable Indication: Shortness of breath Comparison: 12 April 2017 Findings: The heart and mediastinum are stable in size and configuration. The pulmonary vascularity is slightly increased with bilateral increased interstitial lung density. No other lung infiltrates, effusions, pneumothorax or other abnormality is demonstrated. Impression: Findings suggest mild cardiac decompensation. PROCEDURE INTERPRETED AT [facility] DEPARTMENT OF RADIOLOGY Final Report Signed by: Dr. Kal David
--- NOTE | 2017-04-13 08:49 | Cardiology Progress Note ---
Assessment and Plan - Time spent with patient Time spent with patient: Greater than 30 minutes (1) ST elevation (STEMI) myocardial infarction Status: Acute Assessment and plan: SEE PLAN OF CARE LISTED BELOW Current Visit: Yes (2) Hypertension Status: Chronic Assessment and plan: SEE PLAN OF CARE LISTED BELOW Current Visit: Yes (3) Dyslipidemia Status: Chronic Assessment and plan: SEE PLAN OF CARE LISTED BELOW Current Visit: Yes (4) Diabetes Status: Chronic Assessment and plan: SEE PLAN OF CARE LISTED BELOW Current Visit: Yes (5) Obesity (BMI 30.0-34.9) Status: Chronic Assessment and plan: SEE PLAN OF CARE LISTED BELOW Current Visit: Yes (6) Renal insufficiency Status: Acute Assessment and plan: SEE PLAN OF CARE LISTED BELOW Current Visit: Yes (7) Anemia Status: Chronic Assessment and plan: SEE PLAN OF CARE LISTED BELOW Current Visit: Yes (8) Chest pain Status: Acute Assessment and plan: SEE PLAN OF CARE LISTED BELOW Current Visit: Yes Cardiology - PN: Subj Interval history: TUBE DRAW HELPER: DR. GONZALEZ Patient is being seen in the ICU SUMMARY: Ms. Salguero, 71WF, with risk factors significant for: Known CAD (S/P PCI-RCA, PCI-ostial/proximal LAD September 20, 2012), hypertension, dyslipidemia , diabetes, obesity and sedentary lifestyle. Admitted April 12, 2017 with NSTEMI which progressed to STEMI. Underwent emergent cardiac catheterization performed by Dr. Gooden with the following noted: CONCLUSIONS: 1: Successful percutaneous intervention of the mid OM1 for in-stent restenosis treated with PTCA with a 2.5 x 12 mm noncompliant balloon with a residual stenosis in the 10% range. 2: Severe diffuse disease of a very small right coronary artery 3: Total occlusion of the LAD beyond the first septal assistant editor with a very small distal LAD not amenable to PCI or bypass surgery 3: Anteroapical as well as inferobasal hypokinesis ejection fraction in the 50% range. 4: Angio-Seal closure right from arteriotomy site DISCUSSION AND RECOMMENDATIONS: Patient presented with a stuttering inferior myocardial infarction. Identified was diffuse severe disease of a very small right coronary and a fairly large marginal branch which was very tightly stenosed. She has undergone percutaneous intervention of the marginal with a good angiographic result. She is pain-free currently and ECG changes resolved and our plan is going to continue medical therapy. She has a very small distal LAD which is not amenable to PCI or surgery with total occlusion of the LAD beyond the first septal. Results at PCI in 2012 was good with vessel was very small and is not surprising that is currently closed. I think this was a subclinical event. Our plans can be to continue aggressive risk factor modification and antiplatelet therapy. It is disappointing that we were unable to stent this but given the amount of left main stent it is not surprising we were unable to pass a stent into the marginal. 2016: Overnight, patient has done well. No chest pain, heaviness or tightness. Labs are stable. Troponin this morning is pending. Vital signs are stable. No arrhythmia noted. Current medications include: Aspirin, Brilinta, Losartan, Metoprolol, Crestor. Echocardiogram results pending. Cardiac rehab has seen patient. At this point, will transition patient to telemetry. Hopefully, patient may be eligible for discharge tomorrow. Will further discuss with Dr. Gooden and await additional recommendations. ASSESSMENT/PLAN: 1. STEMI - initially, patient was diagnosed with NSTEMI. However, at 0730 evolved into STEMI. She was treated according ACS protocol and taken emergently to cardiac catheterization lab where she has now been revascularized 2. KNOWN CAD - prior PCI RCA, LAD with [place]ICK. On current appropriate cardiac cocktail of medicines. 3. HYPERTENSION - well controlled. Continue beta-blockade and ARB. 4. DYSLIPIDEMIA -LDL 68. Continue high-dose lipid-lowering agent 5. DIABETES - restart Metformin tomorrow morning. Continue sliding scale insulin at this time . 6. OBESITY - dietary counseling prior to discharge 7. ANEMIA - stable overnight. Continue DAPT without fail. 8. RENAL INSUFFICIENCY - improved overnight. ARB has continued. Follow creatinine daily. Exam (Progress Note) - Constitutional Vitals: Period Temp Pulse Resp BP Sys/Mirza Pulse Ox Last 24 Hr 97.5 F-100.5 F 63-82 15-30 103-137/51-79 91-96 Exam: General: [Appears well with no apparent distress.] [Pleasant and cooperative. ] [Appears comfortable.] HEENT: [PERRL, normocephalic, atraumatic. Mucous membranes moist. No jaundice noted. Conjunctiva moist and clear, sclerae anicteric] Neck: No JVD/HJR, no thyromegaly or lymphadenopathy noted. No carotid bruit appreciated Cardiac: [Regular rate and rhythm.] [No murmur rub or gallop.] Lungs: [Clear to auscultation without accessory muscle use to assist the respiratory pattern.] Not requiring oxygen. Abdomen: Soft, bowel sounds normoactive. Nontender and nondistended. No abdominal bruit or thrill noted. No masses noted. Musculoskeletal: No fluid collection. Decreased range of motion is noted. Extremities: Right groin soft, free of hematoma or bruit. No clubbing, cyanosis noted. [ No edema noted.] Upper extremity pulses 2+. Lower extremity pulses 2+. Capillary refill less than 3 seconds. Skin: No unusual lesions or rashes. No skin breakdown appreciated. Neuro: Awake, alert and oriented 3. Moves all extremities well without hemiparesis or paralysis. No essential tremor is appreciated. Result/EKG - Labs CBC & BMP: 04/13/17 05:21 04/13/17 05:21 Lab Results: I have reviewed the past 24 hour labs Labs: Laboratory Results - last 24 hr 04/12/17 04/12/17 04/12/17 10:52 11:51 12:51 WBC RBC Hgb Hct MCV MCH MCHC RDW Plt Count MPV Neut % (Auto) Lymph % (Auto) Hunt % (Auto) Eos % (Auto) Baso % (Auto) Neut # (Auto) Lymph # (Auto) Hunt # (Auto) Eos # (Auto) Baso # (Auto) Immature Gran % Nucleated RBC % Immature Gran # Nucleated RBCs # Immature Plt Fraction Sodium Potassium Chloride Carbon Dioxide Anion Gap BUN Creatinine GFR Calculation BUN/Creatinine Ratio Glucose POC Glucose 166 H 154 H Calculated Osmolality Calcium Magnesium Total Bilirubin AST ALT Alkaline Phosphatase Troponin I 37.000 H D B-Natriuretic Peptide Total Protein Albumin Globulin Albumin/Globulin Ratio Triglycerides Cholesterol LDL Cholesterol VLDL Cholesterol HDL Cholesterol Heart Disease Risk Ratio 04/12/17 04/12/17 04/12/17 14:18 16:27 19:35 WBC RBC Hgb Hct MCV MCH MCHC RDW Plt Count MPV Neut % (Auto) Lymph % (Auto) Hunt % (Auto) Eos % (Auto) Baso % (Auto) Neut # (Auto) Lymph # (Auto) Hunt # (Auto) Eos # (Auto) Baso # (Auto) Immature Gran % Nucleated RBC % Immature Gran # Nucleated RBCs # Immature Plt Fraction Sodium Potassium Chloride Carbon Dioxide Anion Gap BUN Creatinine GFR Calculation BUN/Creatinine Ratio Glucose POC Glucose 139 H 160 H Calculated Osmolality Calcium Magnesium Total Bilirubin AST ALT Alkaline Phosphatase Troponin I 37.400 H B-Natriuretic Peptide Total Protein Albumin Globulin Albumin/Globulin Ratio Triglycerides Cholesterol LDL Cholesterol VLDL Cholesterol HDL Cholesterol Heart Disease Risk Ratio 04/13/17 04/13/17 04/13/17 05:21 05:21 05:21 WBC 12.2 H D RBC 3.89 Hgb 10.0 L Hct 31.0 L MCV 79.7 L MCH 26 L MCHC 32.3 RDW 15.3 Plt Count 260 MPV 10.1 Neut % (Auto) 75.7 H Lymph % (Auto) 13.9 L Hunt % (Auto) 8.7 Eos % (Auto) 0.5 Baso % (Auto) 0.5 Neut # (Auto) 9.3 H Lymph # (Auto) 1.7 Hunt # (Auto) 1.1 H Eos # (Auto) 0.1 Baso # (Auto) 0.1 Immature Gran % 0.7 Nucleated RBC % 0.0 Immature Gran # 0.08 Nucleated RBCs # 0.00 Immature Plt Fraction 0.0 Sodium 140 140 Potassium 4.4 4.4 Chloride 107 107 Carbon Dioxide 24 24 Anion Gap 13.4 13.4 BUN 20 H 21 H Creatinine 1.50 H 1.40 H GFR Calculation 37 40 BUN/Creatinine Ratio 13.00 15.00 Glucose 158 H 167 H POC Glucose Calculated Osmolality 284.4 285.4 Calcium 8.5 8.5 Magnesium 2.2 2.2 Total Bilirubin 1.10 H AST 61 H ALT 31 Alkaline Phosphatase 43 L Troponin I B-Natriuretic Peptide Total Protein 6.4 Albumin 3.3 L Globulin 3.1 Albumin/Globulin Ratio 1.0 L Triglycerides 158 H Cholesterol 141 LDL Cholesterol 68.0 VLDL Cholesterol 31.6 HDL Cholesterol 52 Heart Disease Risk Ratio 2.71 04/13/17 04/13/17 05:22 07:43 WBC RBC Hgb Hct MCV MCH MCHC RDW Plt Count MPV Neut % (Auto) Lymph % (Auto) Hunt % (Auto) Eos % (Auto) Baso % (Auto) Neut # (Auto) Lymph # (Auto) Hunt # (Auto) Eos # (Auto) Baso # (Auto) Immature Gran % Nucleated RBC % Immature Gran # Nucleated RBCs # Immature Plt Fraction Sodium Potassium Chloride Carbon Dioxide Anion Gap BUN Creatinine GFR Calculation BUN/Creatinine Ratio Glucose POC Glucose 159 H Calculated Osmolality Calcium Magnesium Total Bilirubin AST ALT Alkaline Phosphatase Troponin I B-Natriuretic Peptide 574 H Total Protein Albumin Globulin Albumin/Globulin Ratio Triglycerides Cholesterol LDL Cholesterol VLDL Cholesterol HDL Cholesterol Heart Disease Risk Ratio - Diagnostic Findings Procedure: Chest x-ray: report reviewed by me - EKG EKG results: interpreted by me EKG shows: sinus rhythm Specialty Discharge - Follow Up or Referrals
[2017-04-13] MEDS: METOPROLOL TARTRATE 50 MG TABLET PO SCH ×2 (09:15→21:21)
[2017-04-13] MEDS: LOSARTAN 50 MG TABLET PO SCH (09:15)
[2017-04-13] MEDS: TICAGRELOR 90 MG TABLET PO SCH ×2 (09:16→21:21)
[2017-04-13] MEDS: ASPIRIN EC 81 MG TABLET PO SCH (09:16)
[2017-04-13] MEDS: ROSUVASTATIN 20 MG TABLET PO SCH (09:16)
[2017-04-13] MEDS: amLODIPine 5 MG TABLET PO SCH (09:16)
[2017-04-13] MEDS: PANTOPRAZOLE 40 MG TABLET PO SCH (09:16)
[2017-04-13] MEDS: DOXAZOSIN 1 MG TABLET PO SCH (09:16)
[2017-04-13] MEDS: ASPIRIN EC 325 MG TABLET PO SCH (09:17)
--- NOTE | 2017-04-13 10:49 | ECHO Report ---
Lisa Salguero Exam Date: 04/12/2017 13:29 Referring Physician: Technologist: Camilla Márquez RDCS Age: 71 Ht (in): 62 Wt (lb): 180 Gender: F Exam Location: [facility] Echo Indications: Chest pain, unspecified, Essential (primary) hypertension, Dyslipidemia, Diabetes, Anemia, ST elevation (STEMI) myocardial infarction of unspecified site, Renal insufficiency, s/p CATH BP: 108 / 71 HR: 71 Rhythm: Sinus Technical Quality: Good IMPRESSIONS Normal left ventricular cavity size. Mild left ventricular hypertrophy. Left ventricular ejection fraction is estimated at 50 %. The right ventricle is normal in size and function. The right atrium is normal in size. The left atrium is mildly enlarged. Morphologically normal mitral valve. Mild mitral annular calcification. Mild mitral valve regurgitation. Mild aortic valve sclerosis without stenosis. [id number] aortic valve regurgitation. Morphologically normal tricuspid valve. Mild tricuspid valve regurgitation. Tricuspid regurgitation velocities suggest a PAP of 51 mmHg. Morphologically normal pulmonic valve. Trace pulmonary valve regurgitation. Normal pericardium without effusion. Normal ascending aorta dimension. MEASUREMENTS (Male / Female) Normal Values 2D ECHO LV Diastolic Diameter PLAX 4.0 cm 4.2 - 5.9 / 3.9 - 5.3 cm LV Systolic Diameter PLAX 2.9 cm LV Fractional Shortening PLAX 27.0 % IVS Diastolic Thickness 1.0 cm 0.6 - 1.0 / 0.6 - 0.9 cm LVPW Diastolic Thickness 1.0 cm 0.6 - 1.0 / 0.6 - 0.9 cm RV Internal Dim ED PLAX 3.0 cm Aortic Root Diameter 2.9 cm LA Systolic Diameter LX 4.0 cm 3.0 - 4.0 / 2.7 - 3.8 cm DOPPLER TR Peak Velocity 319.0 cm/s TR Peak Gradient 40.7 mmHg FINDINGS Left Ventricle Normal left ventricular cavity size. Mild left ventricular hypertrophy. Left ventricular ejection fraction is estimated at 50 %. Right Ventricle The right ventricle is normal in size and function. Right Atrium The right atrium is normal in size. Left Atrium The left atrium is mildly enlarged. Mitral Valve Morphologically normal mitral valve. Mild mitral annular calcification. Mild mitral valve regurgitation. Aortic Valve Mild aortic valve sclerosis without stenosis. [id number] aortic valve regurgitation. Tricuspid Valve Morphologically normal tricuspid valve. Mild tricuspid valve regurgitation. Tricuspid regurgitation velocities suggest a PAP of 51 mmHg. Pulmonic Valve Morphologically normal pulmonic valve. Trace pulmonary valve regurgitation. Pericardium Normal pericardium without effusion. Aorta Normal ascending aorta dimension. Adrian Gooden MD (Electronically Signed) Final Date: 13 April 2017 10:48
[2017-04-13] MEDS: SODIUM CHLORIDE 0.9% 1,000 ML IV SCH (15:54)
[2017-04-13] MEDS: NITROFURANTOIN MACRO/MONO 100 MG CAPSULE PO SCH (15:55)
[2017-04-14] MEDS: NITROFURANTOIN MACRO/MONO 100 MG CAPSULE PO SCH ×2 (03:43→15:07)
[2017-04-14 06:15] LABS: Calcium 8.4 MG/DL (8.5-10.1); Magnesium 2.1 MG/DL (1.8-2.4); Osmolality,Calculated 283.3 MOS/KG (273-304); Potassium 4.2 MMOL/L (3.5-5.1)
[2017-04-14] MEDS: SODIUM CHLORIDE 0.9% 1,000 ML IV SCH (08:30)
[2017-04-14] MEDS: ASPIRIN EC 81 MG TABLET PO SCH (08:33)
[2017-04-14] MEDS: DOXAZOSIN 1 MG TABLET PO SCH (08:33)
[2017-04-14] MEDS: amLODIPine 5 MG TABLET PO SCH (08:33)
[2017-04-14] MEDS: LOSARTAN 50 MG TABLET PO SCH (08:33)
[2017-04-14] MEDS: ROSUVASTATIN 20 MG TABLET PO SCH (08:33)
[2017-04-14] MEDS: PANTOPRAZOLE 40 MG TABLET PO SCH (08:33)
[2017-04-14] MEDS: TICAGRELOR 90 MG TABLET PO SCH (08:34)
[2017-04-14] MEDS: INSULIN REGULAR 100 UNIT/ML SUBCUT SCH ×2 (08:34→11:49)
[2017-04-14] MEDS: METOPROLOL TARTRATE 50 MG TABLET PO SCH (08:37)
[2017-04-14] MEDS ORDERED: FUROSEMIDE 20 MG/2 ML VIAL IV ONE (10:51)
--- NOTE | 2017-04-14 10:51 | Event Note ---
Patient reports she has been short of breath with exertion and believes that her SPO2 saturations decreased while walking this morning. I am going to give her 20 mg of Lasix IV this morning. I have encouraged her to walk this morning and monitor her symptoms of shortness of breath. We will recheck an SPO2 saturation early afternoon and hopefully discharge patient home this afternoon.
[2017-04-14 13:00] VITALS: BP 116/55
--- NOTE | 2017-04-14 14:40 | Discharge Summary ---
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 MONROE Ms. Salguero, 71WF, with risk factors significant for: Known CAD (S/P PCI-RCA, PCI -ostial/proximal LAD September 20, 2012), hypertension, dyslipidemia, diabetes, obesity and sedentary lifestyle. Presented to the emergency department April 13, 2017 with complaints of chest pain. Initially a NSTEMI but evolved into STEMI. She was taken emergently to the cardiac catheterization lab where Dr. Gooden performed heart catheterization with the following impression noted: Conclusions: 1: Successful percutaneous intervention of the mid OM1 for in-stent restenosis treated with PTCA with a 2.5 x 12 mm noncompliant balloon with a residual stenosis in the 10% range. 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 4: Angio-Seal closure right from arteriotomy site Discussion and recommendations: Patient presents with a stuttering inferior myocardial infarction. She has diffuse severe disease of a very small right coronary and a fairly large marginal branch which was very tightly stenosed. She has undergone percutaneous intervention of the marginal with a good angiographic result. She is pain-free currently and ECG changes are resolved and our plan is going to continue medical therapy. She has a very small distal LAD which is not amenable to PCI or surgery with total occlusion of the LAD beyond the first septal. Results at PCI in 2012 was good with vessel was very small and is not surprising that is currently closed. I think this was a subclinical event. Our plans can be to continue aggressive risk factor modification and antiplatelet therapy. It is disappointing that we were unable to stent this but given the amount of left main stent it is not surprising we were unable to pass a stent into the marginal. Urgently, ED of [facility] in the bridal gown fitter hours this morning with complaints of left sided chest pain and back pain which started approximately 2 hours prior to arrival. Initially, began in the left chest then radiated to the back , described as sharp and grabbing. Associated with shortness of breath and diaphoresis. Can identify no aggravating nor any alleviating factors. Rates the discomfort as a 7 on a scale of 1-10. Initially, upon arrival, patient's chest pain subsided after being given nitroglycerin paste. EKG revealed ST depression and troponin only mildly elevated at 0.2. Around 07, patient began to complain of worsening chest pain radiating to her back. EKG was obtained at [address] elevation. Rated her discomfort as a 7 on a scale of 1-10. Described the discomfort as the same type of discomfort she experienced prior to requiring stents in 2012. Dr. Gooden was notified, came immediately. Patient has received Aspirin, therapeutic dose of Lovenox, Lopressor IV, nitroglycerin paste. Patient took Plavix and Crestor last evening around 9 PM. Patient is being prepped for emergent cardiac catheterization. Echocardiogram: EF 50%, mild to moderate aortic regurgitation, PAP 50 mmHg. April 14, 2017: Overnight, patient has done well. Denies chest pain, heaviness or tightness. She has been ambulating with out difficulty. Right groin is soft, free of hematoma or bruit. Labs are stable. She has been counseled by cardiac rehabilitation. Patient would like to be discharged home today and I believe this is reasonable. She has been discharged home in stable condition. She will be given a 2 week follow-up with Dr. Nehal Monroe. At that visit the following will be obtained: BMP, magnesium, CBC and EKG. Discharge medications include the following: Aspirin 81 mg orally daily Brilinta 90 mg orally twice daily. She is being given a prescription card Amlodipine 5 mg orally daily HCTZ 25 mg orally daily Losartan 100 mg orally daily Bystolic 20 mg orally daily Crestor 20 mg orally each evening Macrobid 100 mg orally twice daily 7 days for UTI Patient will resume her noncardiac preadmission medications at discharge. She will resume Metformin 500 mg orally twice daily with meals starting this evening. - Time spent with patient Time with patient DS: Greater than 30 minutes Diagnosis - Discharge Diagnosis (1) ST elevation (STEMI) myocardial infarction Status: Resolved (2) Hypertension Status: Chronic (3) Dyslipidemia Status: Chronic (4) Diabetes Status: Chronic (5) Obesity (BMI 30.0-34.9) Status: Chronic (6) Renal insufficiency Status: Resolved (7) Anemia Status: Chronic (8) Chest pain Status: Resolved Specialty Discharge - Follow Up or Referrals Follow up with: Nehal Monroe MD [Physician] - (2 weeks. BMP, magnesium, CBC, EKG) Discharge Plan - Discharge Data Disposition: Disch To Home/Self Care Condition at Discharge: Stable Discharge Diet: heart healthy Activity: other (Post cath expectations) Hygiene: other (Post cath expectations) Weight Bearing at Discharge: other (Post cath expectations) Driving: other (Post cath expectations) Contact your physician if you experience:: fever over 101, Difficulty voiding, Redness or swelling, Nausea/Vomiting, Shortness of breath, Bleeding, pain uncontrolled by pain medications - Discharge Medications New Nitrofurantoin Macro/Manati [Macrobid] 100 mg PO Q12H #14 capsule Pantoprazole Tab [Protonix Tab] 40 mg PO DAILY #30 tablet Rosuvastatin [Crestor] 20 mg PO BEDTIME #30 tablet Aspirin EC Tab 81 mg PO DAILY #30 tablet Ticagrelor [Brilinta] 90 mg PO BID #60 tablet Continue Nebivolol HCl [Bystolic] 10 mg PO DAILY Losartan Potassium 100 mg PO DAILY Metformin HCl 500 mg PO BID W/MEALS Cetirizine HCl [Cetirizine Tab] 10 mg PO DAILY amLODIPine [Norvasc] 5 mg PO DAILY hydroCHLOROthiazide [Hydrochlorothiazide] 25 mg PO DAILY Doxazosin [Cardura] 1 mg PO DAILY Discontinued Clopidogrel Bisulfate [Clopidogrel] 75 mg PO DAILY Rosuvastatin Calcium 5 mg PO DAILY - Follow Up or Referral Follow Up: Nehal Monroe MD [Physician] - (2 weeks. BMP, magnesium, CBC, EKG) - Forms/Instructions Instructions: Myocardial Infarction (GEN), Left Heart Catheterization (DC), Heart Healthy Diet (ED), Coronary Artery Disease in Women (GEN) Exam - Constitutional Vitals: Period Temp Pulse Resp BP Sys/Mirza Pulse Ox Last 24 Hr 98.0 F-99.0 F 61-70 18-32 102-134/54-63 92-99 Exam: General: [Appears well with no apparent distress.] [Pleasant and cooperative. ] [Appears comfortable.] HEENT: [PERRL, normocephalic, atraumatic. Mucous membranes moist. No jaundice noted. Conjunctiva moist and clear, sclerae anicteric] Neck: No JVD/HJR, no thyromegaly or lymphadenopathy noted. No carotid bruit appreciated Cardiac: [Regular rate and rhythm.] [No murmur rub or gallop.] Lungs: [Clear to auscultation without accessory muscle use to assist the respiratory pattern.] Not requiring oxygen. Abdomen: Soft, bowel sounds normoactive. Nontender and nondistended. No abdominal bruit or thrill noted. No masses noted. Musculoskeletal: No fluid collection. Decreased range of motion is noted. Extremities: Right groin soft, free of hematoma or bruit. No clubbing, cyanosis noted. [ No edema noted.] Upper extremity pulses 2+. Lower extremity pulses 2+. Capillary refill less than 3 seconds. Skin: No unusual lesions or rashes. No skin breakdown appreciated. Neuro: Awake, alert and oriented 3. Moves all extremities well without hemiparesis or paralysis. No essential tremor is appreciated. Discharge Results Labs on day of discharge: Labs from last 24 hours 04/14/17 04/14/17 04/14/17 11:28 07:22 05:22 Sodium 141 Potassium 4.2 Chloride 110 H Carbon Dioxide 23 Anion Gap 12.2 BUN 18 Creatinine 1.20 H GFR Calculation 49 BUN/Creatinine Ratio 15.00 Glucose 121 H POC Glucose 141 H 129 H Calculated Osmolality 283.3 Calcium 8.4 L Magnesium 2.1 04/13/17 04/13/17 19:45 16:52 Sodium Potassium Chloride Carbon Dioxide Anion Gap BUN Creatinine GFR Calculation BUN/Creatinine Ratio Glucose POC Glucose 164 H 146 H Calculated Osmolality Calcium Magnesium - Imaging and Cardiology Cardiology Procedure: report reviewed by me Procedure: Chest x-ray: report reviewed by DS: Provider Date of admission: 04/12/17 08:09 Primary care physician: Cally Ricardo NP Attending physician on admission: Adrian Gooden MD Consults: 04/12/17 05:11 Consult to [facility], Educator [CONS] Routine Reason for Congressional Aide: Diabetes Education 04/12/17 08:17 Consult to Cardiac Rehabilitation [CONS] Routine Reason for Cardiac Rehabilitation: Risk Factor Modification Other Consult Comment: Evaluate and recommend Discharging clinician: Echo Byrne NP Expected date of discharge: 04/14/17
[2017-04-14] MEDS ORDERED: ROSUVASTATIN 20 MG TABLET PO SCH ×2 (21:00)
== END 2017-04-14 15:50 | disposition home or self-care (01) | DRG 250 ==
LOC: EDUNIT# → EDBD → N.ED 00:57 → N.CL 03:00 → N.ICU 08:10 → N.CL 12:27
PROVIDERS: ADMIT Internal Medicine Interventional Cardiology; ATTEND Internal Medicine Interventional Cardiology
PROC: CLCCHCL (ICD-10-PCS; 2017-04-12 08:45)

== ENCOUNTER 2017-05-19 12:16 | Inpatient (IN) ==
[2017-05-19] MEDS ORDERED: NITROGLYCERIN SL 0.4 MG TABLET SL PRN (13:30)
[2017-05-19] MEDS ORDERED: ASPIRIN 325 MG TABLET PO STA (13:30)
[2017-05-19] MEDS ORDERED: ONDANSETRON 4 MG/2 ML VIAL IV PRN ×2 (13:30→16:30)
[2017-05-19] MEDS ORDERED: MORPHINE 2 MG/1 ML SYRINGE IV PRN (13:30)
[2017-05-19] MEDS ORDERED: ENOXAPARIN 100 MG/ML SYRINGE SUBCUT STA (13:30)
[2017-05-19] MEDS ORDERED: NITROGLYCERIN 2% OINT 1 INCH/GM PACK TOP STA (13:30)
[2017-05-19] MEDS ORDERED: ALUM/MAG/SIMETH/LIDO VISC 1:1 30 ML BOTTLE PO STA ×2 (13:30→16:22)
[2017-05-19] MEDS ORDERED: ENOXAPARIN 80 MG/0.8 ML SYRINGE SUBCUT ONE (13:38)
[2017-05-19] MEDS ORDERED: NITROGLYCERIN 2% OINT 1 INCH/GM PACK TOP ONE (13:38)
[2017-05-19] MEDS ORDERED: ALUM/MAG/SIMETH/LIDO VISC 1:1 30 ML BOTTLE PO ONE ×2 (13:39→15:53)
[2017-05-19] MEDS ORDERED: ASPIRIN 325 MG TABLET ONE (13:39)
[2017-05-19 14:05] LABS: Basophils # 0.1 10*3/uL (0.0-0.2); Basophils % 0.7 % (0.0-0.8); Eosinophils # 0.1 10*3/uL (0.0-0.87); Hematocrit 33.2 VOL% (35.7-47.0); Hemoglobin 10.7 GM/DL (12.0-16.0); Immature Granulocytes % 0.6 %; Immature Granulocytes Absolute 0.06 #; Lymphocytes # 1.7 10*3/uL (1.4-4.0); Lymphocytes % 18.2 % (21.3-54.2); Mean Corpuscular HGB Conc 32.2 GM/DL (32-36); Mean Corpuscular Hemoglobin 26 PG (27-34); Mean Corpuscular Volume 80.8 FL (87-102); Mean Platelet Volume 10.3 FL (9.6-12.0); Monocytes # 0.7 10*3/uL (0.11-0.8); Monocytes % 7.9 % (1.7-12.7); Neutrophils # 6.7 10*3/uL (1.4-7.4); Neutrophils % 71.6 % (38.7-73.9); Platelet Count 230 T/CUMM (130-400); Red Blood Count 4.11 MC/CUMM (3.8-5.5); Red Cell Distribution Width 15.2 % (9.3-17.3); White Blood Count 9.4 T/CUMM (4-12)
[2017-05-19 14:23] LABS: Albumin 4.1 G/DL (3.4-5.0); Bilirubin,Total 0.4 MG/DL (0.2-1.0); Calcium 9.2 MG/DL (8.5-10.1); Osmolality,Calculated 275.8 MOS/KG (273-304); Potassium 3.9 MMOL/L (3.5-5.1)
[2017-05-19 14:42] LABS: PT Patient Result 10.2 SECS; Partial Thromboplastin Time 23.4 SECS (0-40)
[2017-05-19 15:55] LABS: Barbiturates Screen,Urine Negative (Negative); Benzodiazepines Screen,Urine Negative (Negative); Cannabinoid Screen,Urine Negative (Negative); Opiate Screen,Urine Negative (Negative); Phencyclidine Screen,Urine Negative (Negative)
[2017-05-19 15:57] LABS: Apearance,Urine CLEAR (Clear); Bilirubin,Urine Negative (Negative); Blood, Urine Negative (Negative); Glucose,Urine (UA) Negative (Negative); Hyaline Casts,Urine 1 /LPF (0-3); Ketones,Urine Negative (Negative); Mucus,Urine Occasional /LPF (Occasional); Nitrite,Urine Negative (Negative); Protein,Urine Negative; Squamous Epithelial Cell,Urine Occasional /HPF (0-10); Urine Color Yellow (Yellow); Urine Specific Gravity 1.009 (1.001-1.035); Urine Urobilinogen < 2.0 EU/DL (0.2-1.0); WBC,Urine 1 /HPF (0-6)
[2017-05-19] MEDS ORDERED: GLUCAGON 1 MG VIAL IM PRN ×2 (16:30→16:35)
[2017-05-19] MEDS ORDERED: ZALEPLON 5 MG CAPSULE PO PRN (16:30)
[2017-05-19] MEDS ORDERED: DEXTROSE 50% 25 GM/50 ML VIAL IV PRN ×2 (16:30→16:35)
[2017-05-19] MEDS ORDERED: DOCUSATE SODIUM 100 MG CAPSULE PO PRN (16:30)
[2017-05-19] MEDS: PANTOPRAZOLE 40 MG TABLET PO SCH (18:08)
[2017-05-19] MEDS: DOXAZOSIN 1 MG TABLET PO SCH (18:08)
[2017-05-19] MEDS ORDERED: NEBIVOLOL 10 MG TABLET PO SCH (21:00)
[2017-05-19] MEDS ORDERED: ROSUVASTATIN 20 MG TABLET PO SCH (21:00)
[2017-05-19] MEDS ORDERED: CETIRIZINE 10 MG TABLET PO SCH (21:00)
[2017-05-19] MEDS ORDERED: ASPIRIN EC 81 MG TABLET PO SCH (21:00)
[2017-05-19] MEDS: INSULIN REGULAR 100 UNIT/ML SUBCUT SCH (21:57)
[2017-05-19] MEDS: TICAGRELOR 90 MG TABLET PO SCH (21:57)
[2017-05-19] MEDS: busPIRone 5 MG TABLET PO SCH (21:57)
[2017-05-20] MEDS ORDERED: LOSARTAN 50 MG TABLET PO SCH (09:00)
[2017-05-20] MEDS: INSULIN REGULAR 100 UNIT/ML SUBCUT SCH ×2 (09:27→13:04)
[2017-05-20] MEDS: busPIRone 5 MG TABLET PO SCH (09:28)
[2017-05-20] MEDS: TICAGRELOR 90 MG TABLET PO SCH (09:28)
[2017-05-20] MEDS: PANTOPRAZOLE 40 MG TABLET PO SCH (09:28)
[2017-05-20] MEDS: DOXAZOSIN 1 MG TABLET PO SCH (13:09)
[2017-05-20] MEDS ORDERED: ENOXAPARIN 40 MG/0.4 ML SYRINGE SUBCUT SCH (14:00)
[2017-05-20 18:12] VITALS: BP 176/76
[2017-05-20] MEDS ORDERED: NEBIVOLOL 10 MG TABLET PO SCH ×2 (19:00→21:00)
== END 2017-05-20 17:50 | disposition home or self-care (01) | DRG 313 ==
LOC: N.ED 12:16 → N.EDINP 15:57 → N.TELES 17:33
PROVIDERS: ADMIT Internal Medicine Cardiovascular Disease; ATTEND Internal Medicine Cardiovascular Disease

== ENCOUNTER 2017-08-18 00:21 | Inpatient (IN) ==
[2017-08-18] MEDS ORDERED: TICAGRELOR 90 MG TABLET ONE (00:44)
[2017-08-18] MEDS ORDERED: MORPHINE 2 MG/1 ML SYRINGE IV STA (00:45)
[2017-08-18] MEDS ORDERED: ONDANSETRON 4 MG/2 ML VIAL IV STA (00:45)
[2017-08-18] MEDS ORDERED: TICAGRELOR 90 MG TABLET PO STA (00:45)
[2017-08-18] MEDS ORDERED: ASPIRIN 325 MG TABLET PO STA (00:45)
[2017-08-18] MEDS ORDERED: ENOXAPARIN 100 MG/ML SYRINGE SUBCUT STA (00:45)
[2017-08-18] MEDS ORDERED: NITROGLYCERIN 2% OINT 1 INCH/GM PACK TOP ONE (00:45)
[2017-08-18] MEDS ORDERED: ENOXAPARIN 80 MG/0.8 ML SYRINGE SUBCUT ONE (00:45)
[2017-08-18] MEDS ORDERED: NITROGLYCERIN 2% OINT 1 INCH/GM PACK TOP STA (00:45)
[2017-08-18] MEDS ORDERED: MORPHINE 10 MG/1 ML VIAL ONE (01:03)
[2017-08-18] MEDS ORDERED: ONDANSETRON 4 MG/2 ML VIAL ONE (01:03)
[2017-08-18 01:08] LABS: INR 0.9; Partial Thromboplastin Time < 21.0 SECS (0-40)
[2017-08-18] MEDS ORDERED: HYDROmorphone 2 MG/1 ML VIAL ONE (01:13)
[2017-08-18] MEDS ORDERED: LIDOCAINE 1% 20 ML VIAL ONE (01:13)
[2017-08-18 01:14] LABS: Basophils # 0.1 10*3/uL (0.0-0.2); Basophils % 0.8 % (0.0-0.8); Eosinophils # 0.2 10*3/uL (0.0-0.87); Eosinophils % 2.5 % (0.00-10.9); Hematocrit 34.1 VOL% (35.7-47.0); Hemoglobin 10.6 GM/DL (12.0-16.0); Immature Granulocytes % 0.9 %; Immature Granulocytes Absolute 0.07 #; Lymphocytes # 2.6 10*3/uL (1.4-4.0); Lymphocytes % 32.4 % (21.3-54.2); Mean Corpuscular HGB Conc 31.1 GM/DL (32-36); Mean Corpuscular Hemoglobin 25 PG (27-34); Mean Corpuscular Volume 80.6 FL (87-102); Mean Platelet Volume 10.6 FL (9.6-12.0); Monocytes # 0.8 10*3/uL (0.11-0.8); Monocytes % 9.9 % (1.7-12.7); Neutrophils # 4.3 10*3/uL (1.4-7.4); Neutrophils % 53.5 % (38.7-73.9); Platelet Count 225 T/CUMM (130-400); Red Blood Count 4.23 MC/CUMM (3.8-5.5); Red Cell Distribution Width 16.9 % (9.3-17.3)
[2017-08-18] MEDS ORDERED: MIDAZOLAM 2 MG/2 ML VIAL ONE (01:14)
[2017-08-18 01:16] LABS: Albumin 3.9 G/DL (3.4-5.0); Bilirubin,Total 0.9 MG/DL (0.2-1.0); Calcium 9.1 MG/DL (8.5-10.1); Osmolality,Calculated 285.1 MOS/KG (273-304); Potassium 3.9 MMOL/L (3.5-5.1); Total Protein 7.1 G/DL (6.4-8.3)
[2017-08-18] MEDS ORDERED: NITROGLYCERIN SL 0.4 MG TABLET SL PRN (02:09)
[2017-08-18] MEDS ORDERED: MAGNESIUM SULF RIDER 4 GM in PREMIX 1 EACH IV PRN (02:13)
[2017-08-18] MEDS ORDERED: ZALEPLON 5 MG CAPSULE PO PRN (02:13)
[2017-08-18] MEDS ORDERED: SODIUM CHLORIDE 0.45% 1,000 ML IV SCH (02:30)
[2017-08-18] MEDS ORDERED: GLUCAGON 1 MG VIAL IM PRN ×2 (03:14→08:46)
[2017-08-18] MEDS ORDERED: DEXTROSE 50% 25 GM/50 ML VIAL IV PRN ×2 (03:14→08:46)
[2017-08-18] MEDS: INSULIN REGULAR 100 UNIT/ML SUBCUT SCH ×4 (08:36→21:05)
[2017-08-18] MEDS ORDERED: ACETAMINOPHEN 325 MG TABLET PO PRN (09:01)
[2017-08-18] MEDS: DOCUSATE SODIUM 100 MG CAPSULE PO SCH ×2 (09:02→21:05)
[2017-08-18] MEDS: ISOSORBIDE MONONITRATE 30 MG TABLET PO SCH (09:02)
[2017-08-18] MEDS ORDERED: ONDANSETRON 4 MG/2 ML VIAL IV PRN (09:02)
[2017-08-18] MEDS: METOPROLOL TARTRATE 50 MG TABLET PO SCH ×2 (09:02→21:06)
[2017-08-18] MEDS: ASPIRIN EC 81 MG TABLET PO SCH (09:02)
[2017-08-18] MEDS: TICAGRELOR 90 MG TABLET PO SCH ×2 (09:02→21:05)
[2017-08-18] MEDS ORDERED: ALUM/MAG/SIMETH/LIDO VISC 1:1 30 ML BOTTLE PO ONE (09:07)
[2017-08-18 10:18] LABS: Basophils % 0.5 % (0.0-0.8); Eosinophils # 0.1 10*3/uL (0.0-0.87); Eosinophils % 1.6 % (0.00-10.9); Hematocrit 31.9 VOL% (35.7-47.0); Immature Granulocytes % 0.4 %; Immature Granulocytes Absolute 0.03 #; Lymphocytes # 1.9 10*3/uL (1.4-4.0); Lymphocytes % 23.8 % (21.3-54.2); Mean Corpuscular HGB Conc 31.3 GM/DL (32-36); Mean Corpuscular Hemoglobin 25 PG (27-34); Mean Corpuscular Volume 81.2 FL (87-102); Mean Platelet Volume 10.7 FL (9.6-12.0); Monocytes # 0.8 10*3/uL (0.11-0.8); Neutrophils # 5.1 10*3/uL (1.4-7.4); Neutrophils % 63.7 % (38.7-73.9); Platelet Count 259 T/CUMM (130-400); Red Blood Count 3.93 MC/CUMM (3.8-5.5); Red Cell Distribution Width 16.6 % (9.3-17.3)
[2017-08-18 10:58] LABS: CKMB % 8.5 %
[2017-08-18 11:02] LABS: Troponin I Only 1.25 NG/ML (0.00-0.045)
[2017-08-18 15:14] LABS: CKMB % 7.5 %
[2017-08-18 15:15] LABS: Troponin I Only 1.01 NG/ML (0.00-0.045)
[2017-08-18 18:51] LABS: CKMB % 6.6 %
[2017-08-18 18:54] LABS: Troponin I Only 0.931 NG/ML (0.00-0.045)
[2017-08-18] MEDS: ROSUVASTATIN 20 MG TABLET PO SCH (21:05)
[2017-08-19 05:32] LABS: Basophils % 0.5 % (0.0-0.8); Eosinophils # 0.3 10*3/uL (0.0-0.87); Eosinophils % 3.2 % (0.00-10.9); Hematocrit 28.3 VOL% (35.7-47.0); Immature Granulocytes % 0.4 %; Immature Granulocytes Absolute 0.03 #; Lymphocytes # 2.2 10*3/uL (1.4-4.0); Lymphocytes % 28.6 % (21.3-54.2); Mean Corpuscular HGB Conc 31.8 GM/DL (32-36); Mean Corpuscular Hemoglobin 25 PG (27-34); Mean Corpuscular Volume 79.1 FL (87-102); Mean Platelet Volume 10.7 FL (9.6-12.0); Monocytes # 0.9 10*3/uL (0.11-0.8); Monocytes % 11.9 % (1.7-12.7); Neutrophils # 4.3 10*3/uL (1.4-7.4); Neutrophils % 55.4 % (38.7-73.9); Platelet Count 209 T/CUMM (130-400); Red Blood Count 3.58 MC/CUMM (3.8-5.5); Red Cell Distribution Width 16.6 % (9.3-17.3); White Blood Count 7.7 T/CUMM (4-12)
[2017-08-19 06:21] LABS: Calcium 8.9 MG/DL (8.5-10.1); Magnesium 1.7 MG/DL (1.8-2.4); Osmolality,Calculated 284.1 MOS/KG (273-304); Potassium 3.8 MMOL/L (3.5-5.1); Risk Ratio 2.6
[2017-08-19] MEDS: ISOSORBIDE MONONITRATE 30 MG TABLET PO SCH (08:58)
[2017-08-19] MEDS: ASPIRIN EC 81 MG TABLET PO SCH (08:58)
[2017-08-19] MEDS: TICAGRELOR 90 MG TABLET PO SCH ×2 (08:58→20:41)
[2017-08-19] MEDS: DOCUSATE SODIUM 100 MG CAPSULE PO SCH ×2 (08:59→20:41)
[2017-08-19] MEDS: METOPROLOL TARTRATE 50 MG TABLET PO SCH (08:59)
[2017-08-19] MEDS: INSULIN REGULAR 100 UNIT/ML SUBCUT SCH ×4 (09:16→21:03)
[2017-08-19] MEDS: CARVEDILOL 3.125 MG TABLET PO SCH ×2 (11:10→16:11)
[2017-08-19] MEDS: SPIRONOLACTONE 25 MG TABLET PO SCH (11:11)
[2017-08-19] MEDS: LISINOPRIL 2.5 MG TABLET PO SCH (20:42)
[2017-08-19] MEDS: ROSUVASTATIN 20 MG TABLET PO SCH (20:42)
[2017-08-20 04:02] LABS: Basophils # 0.1 10*3/uL (0.0-0.2); Basophils % 0.7 % (0.0-0.8); Eosinophils # 0.3 10*3/uL (0.0-0.87); Eosinophils % 3.4 % (0.00-10.9); Hematocrit 27.3 VOL% (35.7-47.0); Hemoglobin 8.6 GM/DL (12.0-16.0); Immature Granulocytes % 0.5 %; Immature Granulocytes Absolute 0.04 #; Lymphocytes # 2.7 10*3/uL (1.4-4.0); Lymphocytes % 35.7 % (21.3-54.2); Mean Corpuscular HGB Conc 31.5 GM/DL (32-36); Mean Corpuscular Hemoglobin 25 PG (27-34); Mean Corpuscular Volume 80.8 FL (87-102); Mean Platelet Volume 11.1 FL (9.6-12.0); Monocytes # 0.9 10*3/uL (0.11-0.8); Monocytes % 11.8 % (1.7-12.7); Neutrophils # 3.6 10*3/uL (1.4-7.4); Neutrophils % 47.9 % (38.7-73.9); Platelet Count 202 T/CUMM (130-400); Red Blood Count 3.38 MC/CUMM (3.8-5.5); Red Cell Distribution Width 16.7 % (9.3-17.3); White Blood Count 7.4 T/CUMM (4-12)
[2017-08-20 04:30] LABS: Calcium 8.8 MG/DL (8.5-10.1); Magnesium 1.5 MG/DL (1.8-2.4); Osmolality,Calculated 287.7 MOS/KG (273-304); Potassium 3.9 MMOL/L (3.5-5.1)
[2017-08-20] MEDS: MAGNESIUM SULF RIDER 2 GM in PREMIX 1 EACH IV PRN ×2 (05:09→09:21)
[2017-08-20] MEDS: INSULIN REGULAR 100 UNIT/ML SUBCUT SCH ×4 (07:54→21:04)
[2017-08-20] MEDS: ISOSORBIDE MONONITRATE 30 MG TABLET PO SCH (08:31)
[2017-08-20] MEDS: TICAGRELOR 90 MG TABLET PO SCH ×2 (08:31→21:03)
[2017-08-20] MEDS: DOCUSATE SODIUM 100 MG CAPSULE PO SCH ×2 (08:31→21:04)
[2017-08-20] MEDS: ASPIRIN EC 81 MG TABLET PO SCH (08:32)
[2017-08-20] MEDS: LISINOPRIL 2.5 MG TABLET PO SCH ×2 (08:32→21:03)
[2017-08-20] MEDS: CARVEDILOL 3.125 MG TABLET PO SCH ×2 (08:32→16:20)
[2017-08-20] MEDS: SPIRONOLACTONE 25 MG TABLET PO SCH (08:32)
[2017-08-20] MEDS: ROSUVASTATIN 20 MG TABLET PO SCH (21:03)
[2017-08-21 05:58] LABS: Basophils % 0.7 % (0.0-0.8); Eosinophils # 0.3 10*3/uL (0.0-0.87); Eosinophils % 3.9 % (0.00-10.9); Hematocrit 28.3 VOL% (35.7-47.0); Hemoglobin 8.8 GM/DL (12.0-16.0); Lymphocytes # 2.3 10*3/uL (1.4-4.0); Lymphocytes % 32.1 % (21.3-54.2); Mean Corpuscular HGB Conc 31.1 GM/DL (32-36); Mean Corpuscular Hemoglobin 25 PG (27-34); Mean Corpuscular Volume 79.9 FL (87-102); Mean Platelet Volume 10.4 FL (9.6-12.0); Monocytes # 0.9 10*3/uL (0.11-0.8); Monocytes % 12.8 % (1.7-12.7); Neutrophils # 3.5 10*3/uL (1.4-7.4); Neutrophils % 49.5 % (38.7-73.9); Platelet Count 213 T/CUMM (130-400); Red Blood Count 3.54 MC/CUMM (3.8-5.5); Red Cell Distribution Width 16.6 % (9.3-17.3)
[2017-08-21 05:59] LABS: Basophils # 0.1 10*3/uL (0.0-0.2); Immature Granulocytes Absolute 0.07 #
[2017-08-21 06:26] LABS: Calcium 8.8 MG/DL (8.5-10.1); Osmolality,Calculated 284.8 MOS/KG (273-304)
[2017-08-21] MEDS: INSULIN REGULAR 100 UNIT/ML SUBCUT SCH ×3 (08:08→16:04)
[2017-08-21] MEDS ORDERED: MIDAZOLAM 2 MG/2 ML VIAL ONE (08:32)
[2017-08-21] MEDS: ASPIRIN EC 81 MG TABLET PO SCH (08:39)
[2017-08-21] MEDS: TICAGRELOR 90 MG TABLET PO SCH (08:39)
[2017-08-21] MEDS: CARVEDILOL 3.125 MG TABLET PO SCH (08:39)
[2017-08-21] MEDS: SPIRONOLACTONE 25 MG TABLET PO SCH (08:39)
[2017-08-21] MEDS: LISINOPRIL 2.5 MG TABLET PO SCH (08:39)
[2017-08-21] MEDS: ISOSORBIDE MONONITRATE 30 MG TABLET PO SCH (08:39)
[2017-08-21] MEDS: DOCUSATE SODIUM 100 MG CAPSULE PO SCH (08:40)
[2017-08-21] MEDS ORDERED: PANTOPRAZOLE 40 MG TABLET PO SCH (09:00)
[2017-08-21 16:06] VITALS: BP 145/68
== END 2017-08-21 16:05 | disposition home or self-care (01) | DRG 246 ==
LOC: N.ED 00:21 → N.CVR 01:15 → N.CL 01:15 → N.CVR 02:26 → N.ICU 17:54 → N.TELES 08-19 11:41
PROVIDERS: ADMIT Internal Medicine Cardiovascular Disease; ATTEND Internal Medicine Cardiovascular Disease
PROC: CLCCHCL (ICD-10-PCS; 2017-08-18 01:45)

== ENCOUNTER 2018-11-04 14:45 | Observation (INO) ==
[2018-11-04 16:09] LABS: Troponin I < 0.015 NG/ML (0.00-0.045)
[2018-11-04 16:29] LABS: Basophils % 0.7 % (0.0-0.8); Eosinophils # 0.1 10*3/uL (0.0-0.87); Eosinophils % 2.4 % (0.00-10.9); Hematocrit 32.2 VOL% (35.7-47.0); Hemoglobin 9.7 GM/DL (12.0-16.0); Immature Granulocytes % 0.5 %; Immature Granulocytes Absolute 0.03 #; Lymphocytes # 1.2 10*3/uL (1.4-4.0); Lymphocytes % 20.5 % (21.3-54.2); Mean Corpuscular HGB Conc 30.1 GM/DL (32-36); Mean Corpuscular Hemoglobin 27 PG (27-34); Mean Corpuscular Volume 88.2 FL (87-102); Mean Platelet Volume 10.3 FL (9.6-12.0); Monocytes # 0.5 10*3/uL (0.11-0.8); Monocytes % 8.4 % (1.7-12.7); Neutrophils # 3.9 10*3/uL (1.4-7.4); Neutrophils % 67.5 % (38.7-73.9); Platelet Count 233 T/CUMM (130-400); Red Blood Count 3.65 MC/CUMM (3.8-5.5); Red Cell Distribution Width 15.5 % (9.3-17.3); White Blood Count 5.8 T/CUMM (4-12)
[2018-11-04 16:34] LABS: INR 0.9; PT Patient Result 10.1 SECS
[2018-11-04 16:42] LABS: Albumin 3.9 G/DL (3.4-5.0); Bilirubin,Total 0.4 MG/DL (0.2-1.0); Calcium 8.9 MG/DL (8.5-10.1); Osmolality,Calculated 290.3 MOS/KG (273-304); Potassium 4.1 MMOL/L (3.5-5.1); Total Protein 7.5 G/DL (6.4-8.3)
[2018-11-04] MEDS ORDERED: ENOXAPARIN 30 MG/0.3 ML SYRINGE SUBCUT SCH (18:00)
[2018-11-04] MEDS ORDERED: ONDANSETRON 4 MG/2 ML VIAL IV PRN (18:00)
[2018-11-04] MEDS ORDERED: GLUCAGON 1 MG VIAL IM PRN (18:42)
[2018-11-04] MEDS ORDERED: DEXTROSE 50% 25 GM/50 ML SYRINGE IV PRN (18:42)
[2018-11-04] MEDS ORDERED: NITROGLYCERIN SL 0.4 MG TABLET SL PRN (18:43)
[2018-11-04] MEDS ORDERED: FUROSEMIDE 20 MG TABLET PO ONE (18:56)
[2018-11-04] MEDS ORDERED: PNEUMOCOCCAL VACCINE (13 VALENT) 0.5 ML SYRINGE IM ONE (19:31)
[2018-11-04 20:22] LABS: Troponin I < 0.015 NG/ML (0.00-0.045)
[2018-11-04] MEDS: TICAGRELOR 90 MG TABLET PO SCH (20:23)
[2018-11-04] MEDS: INSULIN LISPRO 100 UNIT/ML SUBCUT SCH (20:26)
[2018-11-04] MEDS ORDERED: CETIRIZINE 10 MG TABLET PO SCH (21:00)
[2018-11-04] MEDS ORDERED: ROSUVASTATIN 20 MG TABLET PO SCH (21:00)
[2018-11-05] MEDS ORDERED: ACETAMINOPHEN 325 MG TABLET PO ONE (00:51)
[2018-11-05 04:30] LABS: Calcium 9.3 MG/DL (8.5-10.1); Potassium 3.6 MMOL/L (3.5-5.1)
[2018-11-05] MEDS: INSULIN LISPRO 100 UNIT/ML SUBCUT SCH ×2 (08:45→13:36)
[2018-11-05] MEDS ORDERED: PANTOPRAZOLE 40 MG TABLET PO SCH (09:00)
[2018-11-05] MEDS ORDERED: FUROSEMIDE 20 MG TABLET PO SCH (09:00)
[2018-11-05] MEDS ORDERED: NEBIVOLOL 5 MG TABLET PO SCH (09:00)
[2018-11-05] MEDS ORDERED: ASPIRIN EC 81 MG TABLET PO SCH (09:00)
[2018-11-05] MEDS ORDERED: CYCLOBENZAPRINE 10 MG TABLET PO PRN (09:15)
[2018-11-05] MEDS ORDERED: amLODIPine 2.5 MG TABLET PO SCH (09:30)
[2018-11-05] MEDS: TICAGRELOR 90 MG TABLET PO SCH (09:40)
[2018-11-05] MEDS ORDERED: ACETAMINOPHEN 325 MG TABLET PO PRN (11:23)
[2018-11-05 14:28] VITALS: BP 144/58
[2018-11-06] MEDS ORDERED: NEBIVOLOL 5 MG TABLET PO SCH (09:00)
[2018-11-06] MEDS ORDERED: PNEUMOCOCCAL VACCINE (13 VALENT) 0.5 ML SYRINGE IM ONE (12:00)
== END 2018-11-05 15:40 | disposition home or self-care (01) ==
LOC: N.EDINP 14:45 → N.ED 14:45 → SUATTDRO 18:00 → N.EDINP 19:12 → N.CC 19:23
PROVIDERS: ADMIT Internal Medicine; ATTEND Internal Medicine

== ENCOUNTER 2022-01-12 21:01 | Observation (INO) ==
[2022-01-12] MEDS ORDERED: ASPIRIN 325 MG TABLET PO STA (21:32)
[2022-01-12 21:37] LABS: Basophils # 0.1 10*3/uL (0.0-0.2); Basophils % 0.8 % (0.0-0.8); Eosinophils # 0.2 10*3/uL (0.0-0.87); Eosinophils % 1.8 % (0.00-10.9); Hematocrit 33.4 VOL% (35.7-47.0); Hemoglobin 10.4 GM/DL (12.0-16.0); Immature Granulocytes % 0.5 %; Immature Granulocytes Absolute 0.04 #; Lymphocytes # 2.2 10*3/uL (1.4-4.0); Lymphocytes % 25.7 % (21.3-54.2); Mean Corpuscular HGB Conc 31.1 GM/DL (32-36); Mean Corpuscular Volume 84.6 FL (87-102); Mean Platelet Volume 9.9 FL (9.6-12.0); Monocytes # 0.9 10*3/uL (0.11-0.8); Monocytes % 10.7 % (1.7-12.7); Neutrophils % 60.5 % (38.7-73.9); Platelet Count 279 T/CUMM (130-400); Red Blood Count 3.95 MC/CUMM (3.8-5.5); Red Cell Distribution Width 16.4 % (9.3-17.3); White Blood Count 8.4 T/CUMM (4-12)
[2022-01-12 21:56] LABS: Bilirubin,Total 0.4 MG/DL (0.20-1.00); Calcium 9.6 MG/DL (8.5-10.1); Osmolality,Calculated 280.8 MOS/KG (273-304); Potassium 4.1 MMOL/L (3.5-5.1); Total Protein 8.2 G/DL (6.4-8.2)
[2022-01-12] MEDS ORDERED: ACETAMINOPHEN 325 MG TABLET PO PRN (22:46)
[2022-01-12] MEDS ORDERED: ONDANSETRON 4 MG/2 ML VIAL IV PRN (22:46)
[2022-01-12] MEDS ORDERED: MORPHINE 2 MG/1 ML SYRINGE IV PRN (22:46)
[2022-01-12] MEDS ORDERED: GLUCAGON 1 MG VIAL IM PRN ×2 (22:46)
[2022-01-12] MEDS ORDERED: DEXTROSE 50% 25 GM/50 ML VIAL IV PRN (22:46)
[2022-01-12] MEDS ORDERED: NITROGLYCERIN SL 0.4 MG TABLET SL PRN (22:49)
[2022-01-12] MEDS ORDERED: allopurinoL 100 MG TABLET PO PRN (22:49)
[2022-01-12] MEDS ORDERED: DEXTROSE 10% 250 ML BAG IV PRN (22:55)
[2022-01-12] MEDS ORDERED: ENOXAPARIN 30 MG/0.3 ML SYRINGE SUBCUT SCH (23:00)
[2022-01-13 05:29] LABS: Basophils # 0.1 10*3/uL (0.0-0.2); Eosinophils # 0.2 10*3/uL (0.0-0.87); Eosinophils % 2.3 % (0.00-10.9); Hematocrit 31.4 VOL% (35.7-47.0); Hemoglobin 9.7 GM/DL (12.0-16.0); Immature Granulocytes % 0.3 %; Immature Granulocytes Absolute 0.02 #; Lymphocytes # 2.7 10*3/uL (1.4-4.0); Lymphocytes % 38.3 % (21.3-54.2); Mean Corpuscular HGB Conc 30.9 GM/DL (32-36); Mean Corpuscular Volume 84.4 FL (87-102); Mean Platelet Volume 10.4 FL (9.6-12.0); Monocytes # 0.8 10*3/uL (0.11-0.8); Monocytes % 10.7 % (1.7-12.7); Neutrophils % 47.4 % (38.7-73.9); Platelet Count 266 T/CUMM (130-400); Red Blood Count 3.72 MC/CUMM (3.8-5.5); Red Cell Distribution Width 16.4 % (9.3-17.3)
[2022-01-13 05:53] LABS: Albumin 3.5 G/DL (3.4-5.0); Bilirubin,Total 0.4 MG/DL (0.20-1.00); Calcium 9.4 MG/DL (8.5-10.1); Osmolality,Calculated 283.5 MOS/KG (273-304); Potassium 4.1 MMOL/L (3.5-5.1); Risk Ratio 7.07; Total Protein 7.1 G/DL (6.4-8.2); VLDL Cholesterol 53.8 MG/DL
[2022-01-13] MEDS: INSULIN REGULAR 100 UNIT/ML SUBCUT SCH ×2 (07:21→10:43)
[2022-01-13] MEDS: OLMESARTAN 20 MG TABLET PO SCH ×2 (07:39→08:16)
[2022-01-13] MEDS: ASPIRIN EC 325 MG TABLET PO SCH ×2 (07:39→08:16)
[2022-01-13] MEDS: SIMVASTATIN 10 MG TABLET PO SCH ×2 (07:39→08:16)
[2022-01-13] MEDS: FUROSEMIDE 20 MG TABLET PO SCH ×2 (07:39→08:16)
[2022-01-13] MEDS: CLOPIDOGREL 75 MG TABLET PO SCH ×2 (07:40→08:16)
[2022-01-13] MEDS: DILTIAZEM CD 120 MG CAPSULE PO SCH ×2 (07:40→08:16)
[2022-01-13] MEDS: PANTOPRAZOLE 40 MG TABLET PO SCH ×2 (07:40→08:16)
[2022-01-13] MEDS: MAGNESIUM CHLORIDE 64 MG TABLET PO SCH ×2 (07:41→08:16)
[2022-01-13 11:46] VITALS: BP 150/78
[2022-01-13] MEDS ORDERED: LIDOCAINE 5% PATCH TRANSDERM SCH (12:00)
== END 2022-01-13 15:20 | disposition home or self-care (01) ==
LOC: N.ED 21:01 → N.EDINP 21:01 → N.TELES 23:47
PROVIDERS: ADMIT Internal Medicine; ATTEND Internal Medicine